=== PATIENT | female | born 1975 | race Two or more races ===

== ENCOUNTER 2024-07-23 16:18 | Emergency (ER) | payer MEDICAID, OTHER ==
[~2024-07-23] VITALS: Ht 170.2 cm; Wt 60.0 kg
[2024-07-23] MEDS: ACETAMINOPHEN 325 MG TAB PO ONE (16:56)
[2024-07-23] MEDS: ONDANSETRON ODT 4 MG TAB PO ONE (16:56)
[2024-07-23 17:04] VITALS: PULSE 74; RESP 16; O2SAT 95
--- NOTE | 2024-07-23 17:04 | ED.PDOC ---
GI ASSESSMENT HPI Comments 49 year old female presents to the ED with a chief complaint of na usea/vomiting/diarrhea onset 2 days. Patient states she has been experiencing nausea/vomiting, diarrhea, body aches, fever, for the past 2 days, family members are also experiencing similar symptoms. Upon ED arrival, patient's temperature was 101.1 F, HR 124. Denies any chest pain,shortness of breath, dysuria, hematuria, hematemesis, dizziness, blurry vision. No other symptoms or modifying factors present at this time. Chief Complaint: Nausea/Vomiting Time Seen by MD: 16:37 Reviewed Notes: Nurses Notes, Medications, Allergies Allergies: Coded Allergies: Atropine (Verified Allergy, Unknown, 07/23/24) Hyoscyamine (Verified Allergy, Unknown, 07/23/24) Phenobarbital (Verified Allergy, Unknown, 07/23/24) Scopolamine (Verified Allergy, Unknown, 07/23/24) Information Source: Patient Mode of Arrival: Ambulatory Timing: Days Duration: Since onset Prehospital treatment: None Quality: Sharp Severity: Moderate Recent: None Recent Hx of: None Pain Location: Diffuse Modifying Factors: Nothing Associated sign and symptoms: Nausea, Vomiting, Diarrhea, Abdominal Pain, Fever Past Medical History PAST MEDICAL HISTORY: Denies Surgical History: Denies all surgeries DECK 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 Pertinent DECK MOLDER History Family History Family History: Reviewed,noncontributory to illness, No family hx of Cancer, No family hx of DM, No family hx of Heart shwetha, No family hx of HTN, No family hx ofKidney shwetha, No family hx of Liver shwetha, No family hx of Lung shwetha, No family hx of Stroke Social History Smoker: Non-Smoker Alcohol: Denies ETOH Use Drugs: Denies Drug Use Lives In: Home Constitutional: reports: fever, others (body aches); denies: chills, diaphoresis, fatigue, malaise, sweats, weakness EENTM: denies: blurred vision, double vision, ear bleeding, ear discharge, ear drainage, ear pain, ear ringing, eye pain, eye redness, hearing loss, mouth pain, mouth swelling, nasal discharge, nose bleeding, nose congestion, nose pa in, photophobia, tearing, throat pain, throat swelling, voice changes, others Respiratory: reports: cough; denies: hemoptysis, orthopnea, SOB at rest, shortness of breath, SOB with excertion, stridor, wheezing, others Cardiovascular: denies: chest pain, dizzy spells, diaphoresis, Dyspnea on exertion, edema, irregular heart beat, left arm pain, lightheadedness, palpitations, PND, syncope, others Gastrointestinal: reports: abdominal pain, diarrhea, nausea, vomiting; denies: abdomen distended, blood streaked bowels, constipated, dysphagia, difficulty swallowing, hematemesis, melena, poor appetite, poor fluid intake, rectal bleeding, rectal pain, others Genitourinary: denies: abnormal vagina bleeding, burning, dyspareunia, dysuria, flank pain, frequency, hematuria, incontinence, pain, , vagina discharge, urgency, others Neurological: denies: dizziness, fainting, headache, left sided numbness, left sided weakness, numbness, paresthesia, pre-existing deficit, right sided numbness, right sided weakness, seizure, speech problems, tingling, tremors, weakness, others Musculoskeletal: denies: back pain, gout, joint pain, joint swelling, muscle pain, muscle stiffness, neck pain, others Integumetry: denies: bruises, change in color, change in hair/nails, dryness, laceration, lesions, lumps, rash, wounds, others Allergic/Immunocompromised: denies: Difficulty Healing, Frequent Infections, Hives, Itching, others Hematologic/Lymphatic: denies: anemia, blood clots, easy bleeding, easy bruising, swollen glands, others Endocrine: denies: excessive hunger, excessive sweating, excessive thirst, excessive urination, flushing, intolerance to cold, intolerance to heat, unexplained weight gain, unexplained weight loss, others Psychiatric: denies: anxiety, bipolar disorder, depression, hopeless, panic disorder, schizophrenia, sleepless, suicidal, others All Other Systems: Reviewed and Negative Physical Exam General Appearance: Mild Distress (Moderate distress due to nausea concerns.), Normal HEENT: Normal ENT Inspection, Pharynx Normal, TMs Normal Neck: Full Range of Motion, Non-Tender, Normal, Normal Inspection Respiratory: Chest Non-Tender, Lungs Clear, No Accessory Muscle Use, No Respiratory Distress, Normal Breath Sounds Cardiovascular: No Edema, No JVD, No Murmur, No Gallop, Normal Peripheral Pulse s, Regular Rate/Rhythm Breast Exam: Deferred Gastrointestinal: No Organomegaly, Non Tender, No Pulsatile Mass, Normal Bowel Sounds, Soft Genitalia: Deferred Pelvic: Deferred Rectal: Deferred Extremities: No calf tenderness, Normal capillary refill, Normal inspection, Normal range of motion, Non-tender, No pedal edema Musculoskeletal : Apperance: Normal Neurologic: Alert, No Motor Deficits, Normal Affect, Normal Mood, No Sensory Deficits Cerebellar Function: Normal Reflexes: Normal Skin: Dry, Normal Color, Warm Lymphatic: No Adenopathy Was a procedure done? Was a procedure done?: No GI differential Dx Differential Diagnosis: Other (COVID-19, influenza, viral illness) X-Ray, Labs, Meds, VS Vital Signs Date Time Temp Pulse Resp B/P (MAP) Pulse Ox O2 Delivery O2 Flow Rate FiO2 07/23/24 19:11 98.2 86 16 97/63 (74) 97 98.2 07/23/24 18:04 99.6 07/23/24 17:04 74 16 95 Room Air* 0 21 07/23/24 16:56 101.1 07/23/24 16:28 101.1 124 16 116/60 (78) 96 101.1 Lab Test 07/23/24 19:10 Range/Units Influenza Type A Antigen Negative Negative Influenza Type B Antigen Negative Negative SARS-CoV-2 Antigen (Rapid) Negative NEGATIVE Current Medications Medications (Trade) Dose Ordered Sig/Nahid Route Start Time Stop Time Status Last Admin Acetaminophen (Tylenol Tablet) 1,000 mg ONCE ONCE PO 07/23/24 16:45 07/23/24 16:46 DC 07/23/24 16:56 Ondansetron HCl (Zofran Po) 4 mg ONCE ONCE PO 07/23/24 16:45 07/23/24 16:46 DC 07/23/24 16:56 X-Ray, Labs, Meds, VS Comment All studies performed the ED were evaluated by me personally. Swabs studies for COVID and influenza were negative. Patient had difficulty providing urine and therefore, advised patient that could not rule out a urinary tract infection as a culprit related to her fever issues. Patient will be sent home with supportive medication and advised to utilize good hydration and healthy nutrition throughout. Time of 1ST Reevaluation: 20:27 Reevaluation 1ST: Improved Consultation: PCP Patient Education/Counseling: Diagnosis, Treatment, Prognosis Family Education/Counseling: Diagnosis, Treatment, No Family Present Departure 1 Departure Time of Disposition: 20:28 Impression: Primary Impression: Viral illness Disposition: HOME / SELF CARE / HOMELESS Condition: Stable Additional Instructions: Advised patient utilize medication as needed for symptomatic relief as well as good hydration and healthy nutrition throughout illness event. e-Prescriptions Ondansetron Odt 4MG Tab (ZOFRAN PO) 4 Mg Tb 4 MG PO Q6HP PRN, #20 TAB ODT TAB-DISSOLVE IN MOUTH, THEN SWALLOW Prov: DAVID ACKERMAN PAC 07/23/24 Acetaminophen (Acetaminophen) 500 Mg Tab 500 MG PO Q4HP PRN, #30 TAB Prov: DAVID ACKERMAN PAC 07/23/24 Discharged With: Self, Friend Critical Care Note Critical Care Time?: No Stability Stability form required: No Heart Score Heart Score: Heart Score Response (Comments) Value History N/A 0 EKG N/A 0 Age N/A 0 Risk Factors N/A 0 Troponin N/A 0 Total 0 I personally scribed for DAVID ACKERMAN PAC ([email or web address]) on 07/23/24 at 17:04. Electronically submitted by Yvonne Coley ([email or web address]). DAVID ACKERMAN PAC Jul 23, 2024 17:04
[2024-07-23 19:11] VITALS: BP 97/63; PULSE 86; RESP 16; TEMP 98.2; O2SAT 97
[2024-07-23 19:47] LABS: Rapid Influenza A Negative (Negative); Rapid Influenza B Negative (Negative)
[2024-07-23 19:48] LABS: COVID19 ANTIGEN SOFIA FIA NEGATIVE (NEGATIVE)
[2024-07-23] MEDS ORDERED: ZOFR4T PO (20:29)
[2024-07-23] MEDS ORDERED: ACET500T58 PO (20:29)
== END 2024-07-23 20:41 | disposition home or self-care (01) ==
LOC: ER 16:23
DX: B34.9 Viral infection, unspecified (principal); R11.2 Nausea with vomiting, unspecified; R19.7 Diarrhea, unspecified; Z20.822 Contact with and (suspected) exposure to COVID-19; Z88.8 Allergy status to other drugs, medicaments and biological substances
CPT/HCPCS: 36415; 87426; 87804; 99283; Q0162

== ENCOUNTER 2024-07-30 07:04 | Emergency (ER) | payer MEDICAID ==
[~2024-07-30] VITALS: Ht 170.2 cm; Wt 54.1 kg
[~2024-07-30 07:04] MED LIST: ACET500T58 PO; ZOFR4T PO
--- NOTE | 2024-07-30 07:29 | ED.PDOC ---
GI ASSESSMENT HPI Comments 49 y/o F, presents to the ED for CC of diarrhea. Patient states, she has been experiencing symptoms of diarrhea with associated blood in stool x3days. Patient reports, she talked to her PCP and was told to have a H-pylori test in x1week; endorses symptoms worsening and being unable to see provider until then. Patient denies change in diet, fatigue, weakness, nausea, or vomiting. No other symptoms or modifying factors present at this time. Chief Complaint: Diarrhea Time Seen by MD: 07:20 Reviewed Notes: Nurses Notes, Medications, Allergies Allergies: Coded Allergies: Atropine (Verified Allergy, Unknown, 07/23/24) Hyoscyamine (Verified Allergy, Unknown, 07/23/24) Phenobarbital (Verified Allergy, Unknown, 07/23/24) Scopolamine (Verified Allergy, Unknown, 07/23/24) Home Meds Active Scripts Ondansetron Odt 4MG Tab (ZOFRAN PO) 4 Mg Tb, 4 MG PO Q6HP PRN, #20 TAB ODT TAB-DISSOLVE IN MOUTH, THEN SWALLOW Prov:DAVID ACKERMAN PAC 07/23/24 Acetaminophen (Acetaminophen) 500 Mg Tab, 500 MG PO Q4HP PRN, #30 TAB Prov:DAVID ACKERMAN PAC 07/23/24 Information Source: Patient Mode of Arrival: Ambulatory Timing: Days Duration: Since onset Prehospital treatment: None Quality: None Vomitus: None Stool: Blood Streaked, Watery Severity: Moderate Recent: None Recent Hx of: None Pain Location: None Modifying Factors: Nothing Associated sign and symptoms: Abdominal Pain, Blood in Stool Past Medical History PAST MEDICAL HISTORY: Denies Surgical History: Denies all surgeries RAILROAD OPERATING ENGINEER History: No Pertinent RAILROAD OPERATING ENGINEER History Family History Family History: Reviewed,noncontributory to illness, No family hx of Cancer, No family hx of DM, No family hx of Heart shwetha, No family hx of HTN, No family hx ofKidney shwetha, No family hx of Liver shwetha, No family hx of Lung shwetha, No family hx of Stroke Social History Smoker: Non-Smoker Alcohol: Denies ETOH Use Drugs: Denies Drug Use Lives In: Home Constitutional: denies: chills, diaphoresis, fatigue, fever, malaise, sweats, weakness, others EENTM: denies: blurred vision, double vision, ear bleeding, ear discharge, ear drainage, ear pain, ear ringing, eye pain, eye redness, hearing loss, mouth pain, mouth swelling, nasal discharge, nose bleeding, nose congestion, nose pain, photophobia, tearing, throat pain, throat swelling, voice changes, others Respiratory: denies: cough, hemoptysis, orthopnea, SOB at rest, shortness of breath, SOB with excertion, stridor, wheezing, others Cardiovascular: denies: chest pain, dizzy spells, diaphoresis, Dyspnea on exertion, edema, irregular heart beat, left arm pain, lightheadedness, palpitations, PND, syncope, others Gastrointestinal: reports: diarrhea, others (BLOOD IN STOOL); denies: abdomen distended, abdominal pain, blood streaked bowels, constipated, dysphagia, difficulty swallowing, hematemesis, melena, nausea, poor appetite, poor fluid intake, rectal bleeding, rectal pain, vomiting Genitourinary: denies: abnormal vagina bleeding, burning, dyspareunia, dysuria, flank pain, frequency, hematuria, incontinence, pain, , vagina discharge, urgency, others Neurological: denies: dizziness, fainting, headache, left sided numbness, left sided weakness, numbness, paresthesia, pre-existing deficit, right sided numbness, right sided weakness, seizure, speech problems, tingling, tremors, weakness, others Musculoskeletal: denies: back pain, gout, joint pain, joint swelling, muscle pain, muscle stiffness, neck pain, others Integumetry: denies: bruises, change in color, change in hair/nails, dryness, laceration, lesions, lumps, rash, wounds, others Allergic/Immunocompromised: denies: Difficulty Healing, Frequent Infections, Hives, Itching, others Hematologic/Lymphatic: denies: anemia, blood clots, easy bleeding, easy bruising, swollen glands, others Endocrine: denies: excessive hunger, excessive sweating, excessive thirst, excessive urination, flushing, intolerance to cold, intolerance to heat, unexplained weight gain, unexplained weight loss, others Psychiatric: denies: anxiety, bipolar disorder, depression, hopeless, panic disorder, schizophrenia, sleepless, suicidal, others All Other Systems: Reviewed and Negative Physical Exam General Appearance: No Apparent Distress, Normal HEENT: Normal ENT Inspection, Pharynx Normal Neck: Full Range of Motion, Non-Tender, Normal, Normal Inspection Respiratory: Chest Non-Tender, Lungs Clear, No Accessory Muscle Use, No Respiratory Distress, Normal Breath Sounds Cardiovascular: No Edema, No Murmur, No Gallop, Normal Peripheral Pulses, Regular Rate/Rhythm Breast Exam: Deferred Gastrointestinal: No Organomegaly, Non Tender, No Pulsatile Mass, Normal Bowel Sounds, Soft Genitalia: Deferred Pelvic: Deferred Rectal: Deferred Extremities: No calf tenderness, Normal capillary refill, Normal inspection, Normal range of motion, Non-tender, No pedal edema Musculoskeletal : Apperance: Normal Neurologic: Alert, fibreglass gun hand II-XII nml as Tested, No Motor Deficits, Normal Affect, Normal Mood, No Sensory Deficits Cerebellar Function: Normal Reflexes: Normal Skin: Dry, Normal Color, Warm Lymphatic: No Adenopathy Was a procedure done? Was a procedure done?: No GI differential Dx Differential Diagnosis: Constipation, Diverticular disease, Gastroenteritis, GI hemorrhage, Hepatitis, Inflammatory BD, Ischemic Bowel, Pancreatitis, Dehydrat ion, Electrolyte Imbalance, Food Poisoning, Bacterial, Parasitic, Viral, Hypovolemia, Impaction X-Ray, Labs, Meds, VS Vital Signs Date Time Temp Pulse Resp B/P (MAP) Pulse Ox O2 Delivery O2 Flow Rate FiO2 07/30/24 08:35 77 16 99 Room Air 07/30/24 08:35 97.9 77 16 104/62 (76) 99 97.9 07/30/24 07:15 98.3 81 16 107/71 (83) 97 98.3 Lab Test 07/30/24 07:23 Range/Units White Blood Count 8.0 4.4-10.8 10^3/uL Red Blood Count 4.28 4.0-5.20 10^6/uL Hemoglobin 13.4 12.2-16.2 g/dL Hematocrit 38.5 36.0-46.0 % Mean Corpuscular Volume 89.9 80.0-100.0 fL Mean Corpuscular Hemoglobin 31.2 28.0-32.0 pg Mean Corpuscular Hemoglobin Concent 34.7 32.0-36.0 g/dL Red Cell Distribution Width 12.8 11.8-14.3 % Platelet Count 357 140-450 10^3/uL Mean Platelet Volume 7.4 6.9-10.8 fL Neutrophils (%) (Auto) 69.9 37.0-80.0 % Lymphocytes (%) (Auto) 14.1 10.0-50.0 % Monocytes (%) (Auto) 13.6 H 0.0-12.0 % Eosinophils (%) (Auto) 1.9 0.0-7.0 % Basophils (%) (Auto) 0.5 0.0-2.0 % Neutrophils # (Auto) 5.6 1.6-8.6 10 ^3/uL Lymphocytes # (Auto) 1.1 0.4-5.4 10 ^3/uL Monocytes # (Auto) 1.1 0-1.3 10 ^3/uL Eosinophils # (Auto) 0.2 0-0.8 10 ^3/uL Basophils # (Auto) 0 0-0.2 10 ^3/uL Nucleated Red Blood Cells 0.1 % Sodium Level 141 136-145 mmol/L Potassium Level 4.2 3.5-5.1 mmol/L Chloride Level 105 98-107 mmol/L Carbon Dioxide Level 26 20-31 mmol/L Anion Gap 10 5-15 Blood Urea Nitrogen < 5 L 9-23 mg/dL Creatinine 0.82 0.550-1.02 mg/dL Glomerular Filtration Rate Calc 87 >90 mL/min BUN/Creatinine Ratio 6.1 L 10.0-20.0 Serum Glucose 103 74-106 mg/dL Calcium Level 10.6 H 8.7-10.4 mg/dL Total Bilirubin 0.5 0.2-1.0 mg/dL Aspartate Amino Transferase (AST) 39 H <34 U/L Alanine Aminotransferase (ALT) 74 H 7-40 U/L Alkaline Phosphatase 96 46-116 U/L Total Protein 7.2 5.7-8.2 g/dL Albumin 4.6 3.2-4.8 g/dL Time of 1ST Reevaluation: 07:30 Reevaluation 1ST: Unchanged Time of 2ND Reevaluation: 08:44 Reevaluation 2ND: Improved Patient Education/Counseling: Diagnosis, Treatment, Prognosis, Need For Follow Up Family Education/Counseling: No Family Present Additional Information Previous visits reviewed: 07/23/24 DX: VIRAL ILLNESS The following tests were ordered, and results were reviewed by me: CBC, CMP, CT ABD PEL I reviewed and agreed with the following test results read by other providers: CT ABD PEL I discussed treatment and results with medical personnel and: patient Comprehensive systems review obtained and negative except for what is stated in the HPI. Departure 1 Departure Time of Disposition: 08:45 Impression: Primary Impression: Colitis Disposition: HOME / SELF CARE / HOMELESS Condition: Good e-Prescriptions Metronidazole (Flagyl) 500 Mg Tab 1 TAB PO TID, #30 TAB Prov: EVI LOONEY MD 07/30/24 Discharged With: Self Critical Care Note Critical Care Time?: No Stability Stability form required: No Heart Score Heart Score: Heart Score Response (Comments) Value History N/A 0 EKG N/A 0 Age N/A 0 Risk Factors N/A 0 Troponin N/A 0 Total 0 I personally scribed for EVI LOONEY MD ([email or web address]) on 07/30/24 at 07:29. Electronically submitted by Aleah Smith ([email or web address]). I personally scribed for EVI LOONEY MD ([email or web address]) on 07/30/24 at 07:36. Electronically submitted by Aleah Smith ([email or web address]). EVI LOONEY MD Jul 30, 2024 07:29
[2024-07-30 07:33] LABS: Basophils # (auto) 0 10 ^3/uL (0-0.2); Basophils % (auto) 0.5 % (0.0-2.0); Eosinophils # (auto) 0.2 10 ^3/uL (0-0.8); Eosinophils % (auto) 1.9 % (0.0-7.0); Hematocrit 38.5 % (36.0-46.0); Hemoglobin 13.4 g/dL (12.2-16.2); Lymphocytes # (auto) 1.1 10 ^3/uL (0.4-5.4); Lymphocytes % (auto) 14.1 % (10.0-50.0); Mean Corpuscular Hemoglobin 31.2 pg (28.0-32.0); Mean Corpuscular Hgb Conc. 34.7 g/dL (32.0-36.0); Mean Corpuscular Volume 89.9 fL (80.0-100.0); Monocytes # (auto) 1.1 10 ^3/uL (0-1.3); Monocytes % (auto) 13.6 % (0.0-12.0); Neutrophils # (auto) 5.6 10 ^3/uL (1.6-8.6); Neutrophils % (auto) 69.9 % (37.0-80.0); Nucleated Red Blood Cells % 0.1 %; Platelet Count (auto) 357 10^3/uL (140-450); Red Blood Cells 4.28 10^6/uL (4.0-5.20); Red Cell Distribution Width 12.8 % (11.8-14.3)
[2024-07-30 08:12] LABS: Albumin 4.6 g/dL (3.2-4.8); Alkaline Phosphatase 96 U/L (46-116); Anion Gap 10 (5-15); Carbon Dioxide 26 mmol/L (20-31); Chloride 105 mmol/L (98-107); Glucose 103 mg/dL (74-106); Potassium 4.2 mmol/L (3.5-5.1); Sodium 141 mmol/L (136-145); Total Protein 7.2 g/dL (5.7-8.2)
[2024-07-30 08:13] LABS: Bilirubin, Total 0.5 mg/dL (0.2-1.0)
[2024-07-30 08:15] LABS: Alanine Aminotransferase 74 U/L (7-40); Aspartate Aminotransferase 39 U/L (<34); BUN/Creatinine Ratio 6.1 (10.0-20.0); Blood Urea Nitrogen < 5 mg/dL (9-23); Calcium 10.6 mg/dL (8.7-10.4)
--- NOTE | 2024-07-30 08:24 | DVH ---
CT CT AB PEL WO CON-NO ORAL OR IV INDICATION: bloody diarrhea EXAM DATE: 07/30/2024 07:50 AM COMPARISON: None RADIATION DOSE: CTDIvol: 5.52 mGy, DLP: 279.38 mGy*cm PROCEDURE: Helical CT images were obtained of the abdomen and pelvis without IV contrast Sagittal and coronal reconstructions are provided. ORAL CONTRAST: None. ADDITIONAL IMAGES / REFORMATS: None All C T scans at this medical facility are performed using dose modulation techniques as appropriate to a p erformed exam including the following: Automated exposure control was utilized; adjustment of the MA and/or KV according to patient size; and use of iterative reconstruction technique. FINDINGS: LUNG BASE: Normal. LIVER: Normal. GALLBLADDER AND BILIARY TREE: No calcified gallstones. Normal caliber wall. No intra- or extrahepatic biliary ductal dilation. PANCREAS: Normal. SPLEEN: Normal. BOWEL: Mildly thick walled descending colon although decompressed could be colitis. Normal appendix. ADRENALS: Normal. KIDNEYS AND URETER: Normal. BLADDER: Normal. REPRODUCTIVE ORGANS: Normal. LYMPH NODES:No lymphadenopathy. PERITONEUM: No ascites or free air. No other fluid collection. VESSELS: Scattered atherosclerotic calcifications are noted. RETROPERITONEUM: Normal. ABDOMINAL WALL: Normal. BONES: Scattered osseous degenerative changes are noted. IMPRESSION: Mildly thick walled descending colon although decompressed could be colitis.
[2024-07-30 08:35] VITALS: BP 104/62; PULSE 77; RESP 16; TEMP 97.9; O2SAT 99
[2024-07-30] MEDS ORDERED: METR-344 PO (08:45)
== END 2024-07-30 09:08 | disposition home or self-care (01) ==
LOC: ER 07:04
DX: K52.9 Noninfective gastroenteritis and colitis, unspecified (principal); Z88.2 Allergy status to sulfonamides; Z88.8 Allergy status to other drugs, medicaments and biological substances
CPT/HCPCS: 36415; 74176; 80053; 85025